=== PATIENT | female | born 1950 | race Hispanic/Latino ===

== ENCOUNTER 2021-08-10 16:15 | Emergency (ER) | payer OTHER ==
--- NOTE | 2021-08-10 17:14 | RAD REPORT ---
EXAM DESCRIPTION: CT - Spine Lumbar Wo Con - 08/10/2021 4:54 pm CLINICAL HISTORY: LOWER BACK PAIN COMPARISON: No comparisons TECHNIQUE: Axial noncontrast CT imaging of the lumbar spine was performed with coronal and sagittal re-formatted images. All CT scans are performed using dose optimization technique as appropriate and may include automated exposure control or mA/KV adjustment according to patient size. FINDINGS: Acute anterior superior endplate fracture involving L3 with up to 30% loss of height. No b polly retropulsion. L2 compression deformity which is age indeterminate. Spinal stimulator. Broad-based disc bulge at L4-5 which not well assessed without contrast. Punctate stone in the left kidney. IMPRESSION: Acute L3 compression fracture with approximately 30% loss of height. No bony retropulsio n. Age-indeterminate L2 compression fracture.
--- NOTE | 2021-08-10 18:04 | ER ---
Nurse's Notes [facility] Name: Cristel Liu Age: 71 yrs Sex: Female : 1950 Arrival Date: 08/10/2021 Time: 16:16 Bed DIS1 Private MD: Diagnosis: Wedge compression fracture of unspecified lumbar vertebra Presentation: 08/10 16:32 Chief complaint: Patient states: FALL INJURY 5 DAYS AGO PAIN TO LOW BACK. Coronavirus iw screen: Vaccine status: Patient reports receiving the 2nd dose of the covid vaccine. Ebola Screen: Patient negative for fever greater than or equal to 101.5 degrees Fahrenheit, and additional compatible Ebola Virus Disease symptoms Patient denies exposure to infectious person. Patient denies travel to an Ebola-affected area in the 21 days before illness onset. No symptoms or risks identified at this time. Initial Sepsis Screen: Does the patient meet any 2 criteria? No. Patient's initial sepsis screen is negative. Does the patient have a suspected source of infection? No. Patient's initial sepsis screen is negative. Risk Assessment: Do you want to hurt yourself or someone else? Patient reports no desire to harm self or others. Onset of symptoms was August 05, 2021. 16:32 Method Of Arrival: Wheelchair iw 16:32 Acuity: ABIGAIL 3 iw Triage Assessment: 16:38 General: Appears uncomfortable, Behavior is cooperative. Pain: Complains of pain in LOW iw BACK Pain does not radiate. Pain currently is 10 out of 10 on a pain scale. Quality of pain is described as stabbing, Pain began 5 days ago Is continuous. Historical: - Allergies: 16:37 PENICILLINS; iw - PMHx: 16:37 Diabetes mellitus; Hypertensive disorder; Hypercholesterolemia; Congestive heart iw failure; - PSHx: 16:38 HYSTERECTOMY, MASTECTOMY; iw - Immunization history:: Adult Immunizations up to date. - Social history:: Smoking status: Patient/guardian denies using. Assessment: 18:00 General: Appears in no apparent distress. Behavior is calm, cooperative. Pain: iw Complains of pain in lumbar spine and low back area. Neuro: Level of Consciousness is awake, alert, obeys commands, Oriented to person, place, time, situation. Derm: Skin is intact, is healthy with good turgor. Musculoskeletal: Range of motion: intact in all extremities, Reports pain in back. Vital Signs: 16:32 BP 154 / 71; Pulse 56; Resp 16; Temp 97.6(TE); Pulse Ox 96% on R/A; Weight 90.26 kg; iw Height 5 ft. 2 in. (157.48 cm); Pain 10/10; 16:32 Body Mass Index 36.40 (90.26 kg, 157.48 cm) iw ED Course: 16:16 Patient arrived in ED. ds1 16:23 Italo Oconnor NP is PHCP. pm1 16:23 Andrea Acevedo MD is Attending Physician. pm1 16:36 Triage completed. iw 16:52 CT Lumbar Spine Wo Con In Process Unspecified. EDMS 18:27 Zainab Cash RN is Primary Nurse. iw 19:00 No provider procedures requiring assistance completed. Patient did not have IV access iw during this emergency room visit. 19:12 Primary Nurse role handed off by Zainab Cash RN eb Administered Medications: 19:04 Drug: morphine 4 mg Route: IM; Site: left deltoid; iw 19:30 Follow up: Response: No adverse reaction iw 19:04 Drug: Ondansetron 4 mg Route: PO; iw 19:30 Follow up: Response: No adverse reaction iw 19:04 Drug: Lidoderm Patch 5 % (700 mg/patch) 1 patches Route: Topical; Site: affected area; iw 19:30 Follow up: Response: No adverse reaction iw Outcome: 18:04 Discharge ordered by . pm1 19:13 Patient left the ED. eb Signatures: Dispatcher [employer] [facility] Yumiko Villalobos ds1 Zainab Cash RN RN iw Italo Oconnor NP PROTOTYPE CARPENTER pm1 Aliya Medina
--- NOTE | 2021-08-10 18:05 | EDPHYS ---
Physician Documentation [facility] Name: Cristel Liu Age: 71 yrs Sex: Female : 1950 Arrival Date: 08/10/2021 Time: 16:16 Bed DIS1 Private MD: ED Physician Andrea Acevedo HPI: 08/10 16:24 This 71 yrs old Female presents to ER via Wheelchair with complaints of Fall pm1 Injury, Back Pain. 16:24 Details of fall: The patient fell from an upright position, while standing, and struck pm1 a tile surface. Onset: The symptoms/episode began/occurred 5 day(s) ago. Associated injuries: The patient sustained injury to the low back, pain. Severity of symptoms: in the emergency department the symptoms are unchanged. The patient has experienced similar episodes in the past, Patient with history of chronic back pain, Patient has a stimulator to her back that has not been in use for 6 months due to her losing the parts salesman for it. Her pain management MD in [place] is working with insurance to get a replacement parts salesman for it. Patient is taking gabapentin for the back pain. Historical: - Allergies: 16:37 PENICILLINS; iw - PMHx: 16:37 Diabetes mellitus; Hypertensive disorder; Hypercholesterolemia; Congestive heart iw failure; - PSHx: 16:38 HYSTERECTOMY, MASTECTOMY; iw - Immunization history:: Adult Immunizations up to date. - Social history:: Smoking status: Patient/guardian denies using. ROS: 16:24 Constitutional: Negative for fever, chills, and weight loss, Cardiovascular: Negative pm1 for chest pain, palpitations, and edema, Respiratory: Negative for shortness of breath, cough, wheezing, and pleuritic chest pain, Abdomen/GI: Negative for abdominal pain, nausea, vomiting, diarrhea, and constipation. 16:24 MS/Extremity: Negative for injury and deformity, Skin: Negative for injury, rash, and discoloration, Neuro: Negative for headache, weakness, numbness, tingling, and seizure. 16:24 Back: Positive for of the low back area. 16:24 All other systems are negative. Exam: 16:26 Constitutional: This is a well developed, well nourished patient who is awake, alert, pm1 and in no acute distress. Head/Face: Normocephalic, atraumatic. 16:26 Cardiovascular: Exam negative for acute changes, Rate: normal, Rhythm: regular, Pulses: no pulse deficits are appreciated, Heart sounds: normal, normal S1and S2. 16:26 Respiratory: Exam negative for acute changes, respiratory distress, shortness of breath, Breath sounds: are clear throughout. 16:26 Abdomen/GI: Exam negative for acute changes, Inspection: abdomen appears normal, Palpation: abdomen is soft and non-tender, in all quadrants. 16:26 Back: vertebral tenderness, is appreciated at lumbar spine. Vital Signs: 16:32 BP 154 / 71; Pulse 56; Resp 16; Temp 97.6(TE); Pulse Ox 96% on R/A; Weight 90.26 kg; iw Height 5 ft. 2 in. (157.48 cm); Pain 10/10; 16:32 Body Mass Index 36.40 (90.26 kg, 157.48 cm) iw MDM: 16:48 Patient medically screened. pm1 17:51 Data reviewed: vital signs. Data interpreted: Pulse oximetry:. Counseling: I had a pm1 detailed discussion with the patient and/or guardian regarding: the historical points, exam findings, and any diagnostic results supporting the discharge/admit diagnosis, radiology results, the need for outpatient follow up, a paint brush maker, to return to the emergency department if symptoms worsen or persist or if there are any questions or concerns that arise at home. 18:06 ED course: Patient has tramadol at home per daughter. pm1 08/10 16:24 Order name: CT Lumbar Spine Wo Con; Complete Time: 17:50 pm1 Administered Medications: 19:04 Drug: morphine 4 mg Route: IM; Site: left deltoid; iw 19:30 Follow up: Response: No adverse reaction iw 19:04 Drug: Ondansetron 4 mg Route: PO; iw 19:30 Follow up: Response: No adverse reaction iw 19:04 Drug: Lidoderm Patch 5 % (700 mg/patch) 1 patches Route: Topical; Site: affected area; iw 19:30 Follow up: Response: No adverse reaction iw Disposition: 18:59 Co-signature as Attending Physician, Andrea Acevedo MD I agree with the assessment and kdr plan of care. Disposition Summary: 08/10/21 18:04 Discharge Ordered Location: Home pm1 Problem: new pm1 Symptoms: have improved pm1 Condition: Stable pm1 Diagnosis - Wedge compression fracture of unspecified lumbar vertebra pm1 Followup: pm1 - With: Emergency Department - When: As needed - Reason: Worsening of condition Followup: pm1 - With: Private Physician - When: 2 - 3 days - Reason: Recheck today's complaints, Continuance of care, Re-evaluation by your physician Discharge Instructions: - Discharge Summary Sheet pm1 - Spinal Compression Fracture pm1 Forms: - Medication Reconciliation Form pm1 - Thank You Letter pm1 - Antibiotic Education pm1 - Prescription Opioid Use pm1 Signatures: Dispatcher [employer] EDAndrea Urena MD MD kdr Williams, Irene, RN RN Italo Law NP GIS APPLICATION DEVELOPER pm1
[2021-08-10] MEDS ORDERED: MORPHINE 4 MG/ML SYR ONE (18:37)
[2021-08-10] MEDS ORDERED: ONDANSETRON 4 MG (ODT) TAB ONE ×3 (18:37→19:03)
[2021-08-10] MEDS ORDERED: LIDOCAINE 4% PATCH ONE (18:38)
[2021-08-10 19:19] VITALS: BP 154/71; TEMP 97.6; O2SAT 96
== END 2021-08-10 19:13 | disposition home or self-care (01) ==
LOC: ER 16:15
DX: S32.030A Wedge compression fracture of third lumbar vertebra, initial encounter for closed fracture (principal); W18.30XA Fall on same level, unspecified, initial encounter; I10 Essential (primary) hypertension; Z88.0 Allergy status to penicillin
CPT/HCPCS: 72131; 96372; 99283